=== PATIENT | female | born 1950 | race Caucasian/White ===

== ENCOUNTER 2019-11-19 14:05 | Emergency (ER) | payer MEDICARE, OTHER ==
[~2019-11-19] VITALS: Ht 162.6 cm; Wt 55.3 kg
--- NOTE | 2019-11-19 14:30 | NUR ---
bib ems frm snf c/o mass to L side of neck since this mornng. On room air, breathing evenly and unlabored. connected to the monitor and pulse ox. kept comfortable, will continue to monitor accordingly.
[2019-11-19 15:08] LABS: BASOPHILS # (AUTO) 0.1 /CMM (0.0-0.2); BASOPHILS % (AUTO) 0.7 % (0.0-2.0); EOSINOPHILS % (AUTO) 1.3 % (0.0-6.0); HEMATOCRIT 36 % (33-45); HEMOGLOBIN 12.1 g/dL (11.5-14.8); LYMPHOCYTES # (AUTO) 1.4 /CMM (0.8-4.8); LYMPHOCYTES % (AUTO) 19.8 % (20.0-44.0); MEAN CORPUSCULAR HGB CONC 34 g/dl (31.0-36.0); MEAN CORPUSCULAR VOLUME 97 fL (82-100); MONOCYTES # (AUTO) 0.7 /CMM (0.1-1.30); MONOCYTES % (AUTO) 9.7 % (2.0-12.0); NEUTROPHILS # (AUTO) 4.9 /CMM (1.8-8.9); NEUTROPHILS % (AUTO) 68.5 % (43.0-81.0); PLATELET COUNT (AUTO) 231 /CMM (150-450); RED BLOOD CELL COUNT(AUTO) 3.71 MIL/uL (4.0-5.2); WHITE BLOOD COUNT (AUTO) 7.1 K/uL (4.3-11.0)
[2019-11-19] MEDS ORDERED: IV NS 0.9% 250 ML IV ONE (15:17)
[2019-11-19] MEDS ORDERED: IOHEXOL-300 100 ML VIAL IV ONE (15:17)
[2019-11-19 15:19] LABS: CREATININE 0.8 mg/dL (0.6-1.3); POTASSIUM 3.8 mmol/L (3.5-5.1)
--- NOTE | 2019-11-19 16:50 | NUR ---
PANEL ON-CALL PAGED
[2019-11-19] MEDS ORDERED: PANT40TA4 PO (17:00)
[2019-11-19] MEDS ORDERED: RISP1TAB27 PO (17:00)
[2019-11-19] MEDS ORDERED: ATEN25TA PO (17:00)
[2019-11-19] MEDS ORDERED: ROSU20TA32 PO (17:00)
--- NOTE | 2019-11-19 17:28 | NUR ---
PAGED [facility].
--- NOTE | 2019-11-19 18:04 | NUR ---
CALLED [facility] TO SEE IF THEY HAVE ENT BEDS AVAILABLE. NO BEDS AVAILABLE.
--- NOTE | 2019-11-19 18:04 | NUR ---
CALLED [facility] TO SEE IF THEY ENT AVAILABLE. THEY DO BUT PER NURSING SUP AT [facility] ONLY ACCEPT TRANSFERS THROUGH CASE MANAGEMENT. LEFT MESSAGE FOR CASE MANAGEMENT, NO ANSWER.
--- NOTE | 2019-11-19 18:06 | NUR ---
CALLED [facility] TO SEE IF THEY HAVE ENT AVAILABLE. NO ENT SERVICES.
--- NOTE | 2019-11-19 18:12 | NUR ---
CALLED [facility] TO SEE IF THERE WERE ANY M/S BED AVAILABLE FOR ENT. NO BEDS AVAILABLE.
--- NOTE | 2019-11-19 18:32 | NUR ---
CALLED [facility]. THEY DO HAVE M/S BEDS AVAILABLE. SPOKE TO BARRY AND WANTS ME TO SEND OVER CLINICALS OVER TO THEM.
--- NOTE | 2019-11-19 19:30 | NUR ---
Rec'd report from AM shift. Pt awaiting disposition, possible transfer to higher level of care. Rec'd pt in bed, asleep at this time, placed on monitor, VSS, denies any pain/discomfort at this time. -SOB. WCTM.
--- NOTE | 2019-11-19 20:41 | NUR ---
SPOKE TO [facility] TO MD REPORT FOR POSSIBLE TRANSFER.
--- NOTE | 2019-11-19 20:51 | NUR ---
MARA DIALLO SPOKE TO DR. CAMARGO FROM [facility] REGARDING PT TRANSFER. DR. CAMARGO ACCPTED PT PER MARA DIALLO AQUINO.
--- NOTE | 2019-11-19 20:57 | NUR ---
SPOKE TO DOMI FROM [facility] MADE AWARE THAT DR. CAMARGO ACCEPTED PT.
--- NOTE | 2019-11-19 23:51 | NUR ---
SPOKE TO DOMI FROM [facility] FOR TRANSFER UPDATE STATES "WE ARE STILL WAITING FOR DR. CAMARGO TO PUT IN ORDERS BEFORE WE CAN ADMIT AND WE WILL CALL BACK FOR BED".
--- NOTE | 2019-11-20 01:38 | NUR ---
spoke to nursing sup. no bed given but can arrange transport to ms floor # for report [phone] --charge nurse elle
--- NOTE | 2019-11-20 01:49 | NUR ---
TRANSPORT CALLED ([facility]) ETA [phone]
--- NOTE | 2019-11-20 01:53 | NUR ---
RECEIVED CALL FROM [facility], SAID WILL UPDATE ME ON BED.
--- NOTE | 2019-11-20 01:56 | NUR ---
SPOKE TO NOBLE COUNTER CONTROL OPERATOR AT [facility]. BED ASSIGNMENT 1625-1. ALSO ADVISED TO DIRECT AMBULANCE TRANSPORT TO DROP PT OFF AT ER ADMITTING SO THAT ER STAFF CAN TRANSPORT PT TO ROOM.
--- NOTE | 2019-11-20 02:01 | NUR ---
report given to elle charge nurse at MS floor at [facility]
--- NOTE | 2019-11-20 02:20 | NUR ---
TRANSPORT AT BEDSIDE REPORT GIVEN TO EMT.
[2019-11-20 02:21] VITALS: BP 124/71
--- NOTE | 2019-11-20 02:28 | NUR ---
REPORT GIVEN TO hotel manager FROM [facility]
--- NOTE | 2019-11-20 02:37 | NUR ---
pt left to [facility] via private ambulance, pt left in stable condition, vss, nad noted. -sob.
== END 2019-11-20 02:38 | disposition short-term general hospital (02) ==
LOC: ER 14:08
DX: N88.8 Other specified noninflammatory disorders of cervix uteri (principal); R59.0 Localized enlarged lymph nodes; E04.1 Nontoxic single thyroid nodule; I25.10 Atherosclerotic heart disease of native coronary artery without angina pectoris; F03.90 Unspecified dementia, unspecified severity, without behavioral disturbance, psychotic disturbance, mood disturbance, and anxiety; E78.5 Hyperlipidemia, unspecified; E53.8 Deficiency of other specified B group vitamins; F29 Unspecified psychosis not due to a substance or known physiological condition; I10 Essential (primary) hypertension; K21.9 Gastro-esophageal reflux disease without esophagitis; Z79.899 Other long term (current) drug therapy; Z88.6 Allergy status to analgesic agent
CPT/HCPCS: 36415; 70491; 71045; 80048; 85025; 99285; J7050; Q9967

== ENCOUNTER 2019-12-30 21:26 | Emergency (ER) | payer MEDICARE, OTHER ==
[~2019-12-30] VITALS: Ht 162.6 cm; Wt 58.1 kg
[~2019-12-30 21:26] MED LIST: ATEN25TA PO; PANT40TA4 PO; RISP1TAB27 PO; ROSU20TA32 PO
--- NOTE | 2019-12-30 21:46 | NUR ---
PATIENT CAME TO ER BED 10 C/O LEFT SIDED NECK PAIN. PATIENT HAS A LUMP ON THE LEFT SIDE OF HER NECK. PATIENT IS ABLE TO SPEAK, BUT DIFFICULT TO UNDERSTAND. PATIENT IS BREATHING EVENLY AND UNLABORED ON ROOM AIR AT 99% O2 SATURATION. PATIENT IS ALERT, AND ABLE TO ANSWER TO COMMANDS BY NODDING. PATIENT IS CONNECTED TO MONITOR.
[2019-12-30 22:43] LABS: BASOPHILS % (AUTO) 0.5 % (0.0-2.0); EOSINOPHILS % (AUTO) 2.4 % (0.0-6.0); HEMATOCRIT 38 % (33-45); HEMOGLOBIN 12.4 g/dL (11.5-14.8); LYMPHOCYTES # (AUTO) 1.5 /CMM (0.8-4.8); LYMPHOCYTES % (AUTO) 18.5 % (20.0-44.0); MEAN CORPUSCULAR HGB CONC 33 g/dl (31.0-36.0); MEAN CORPUSCULAR VOLUME 97 fL (82-100); MONOCYTES # (AUTO) 0.5 /CMM (0.1-1.30); MONOCYTES % (AUTO) 6.5 % (2.0-12.0); NEUTROPHILS # (AUTO) 5.8 /CMM (1.8-8.9); NEUTROPHILS % (AUTO) 72.1 % (43.0-81.0); PLATELET COUNT (AUTO) 245 /CMM (150-450); RED BLOOD CELL COUNT(AUTO) 3.93 MIL/uL (4.0-5.2)
[2019-12-30 22:56] LABS: CALCIUM, SERUM 9.2 mg/dL (8.5-10.1); CREATININE 0.6 mg/dL (0.6-1.3); POTASSIUM 3.9 mmol/L (3.5-5.1)
[2019-12-30 23:07] LABS: ALBUMIN 3.4 g/dL (3.4-5.0); BILIRUBIN,DIRECT 0.1 mg/dL (0.0-0.2); BILIRUBIN,TOTAL 0.4 mg/dL (0.2-1.0); TOTAL PROTEIN, SERUM 7.6 g/dL (6.4-8.2)
--- NOTE | 2019-12-30 23:25 | NUR ---
PANEL PAGED PER [facility].
--- NOTE | 2019-12-30 23:56 | NUR ---
PATIENT FINISHED APPLE SAUCE FOR PO CHALLENGE.
--- NOTE | 2019-12-31 00:56 | NUR ---
[facility] CALLED FOR TRANSPORT. ETA [phone]
--- NOTE | 2019-12-31 02:11 | NUR ---
report given to Leela LERNER at [facility] for arlin.
--- NOTE | 2019-12-31 02:28 | NUR ---
AMBULITE UNIT 710 AT THE BED SIDE TO HOT BLAST WORKER THE PT
--- NOTE | 2019-12-31 02:29 | NUR ---
REPORT GIVEN TO EMS. PT STABLE FOR DISCHARGE
--- NOTE | 2019-12-31 02:29 | NUR ---
Patient discharged to home in stable condition. Written and verbal after care instructions given. Patient verbalizes understanding of instruction.
[2019-12-31 02:37] VITALS: BP 121/89
== END 2019-12-31 02:38 ==
LOC: ER 21:27
DX: R22.1 Localized swelling, mass and lump, neck (principal); G30.9 Alzheimer's disease, unspecified; F02.80 Dementia in other diseases classified elsewhere, unspecified severity, without behavioral disturbance, psychotic disturbance, mood disturbance, and anxiety; I10 Essential (primary) hypertension; K21.9 Gastro-esophageal reflux disease without esophagitis; I25.10 Atherosclerotic heart disease of native coronary artery without angina pectoris; E78.5 Hyperlipidemia, unspecified; Z98.890 Other specified postprocedural states; Z88.8 Allergy status to other drugs, medicaments and biological substances; Z79.899 Other long term (current) drug therapy
CPT/HCPCS: 36415; 80048-TC; 80076-TC; 85025-TC; 85730-TC